=== PATIENT | male | born 1975 | race Caucasian/White ===

== ENCOUNTER 2016-05-31 19:47 | Emergency (ER) | payer OTHER ==
[~2016-05-31 19:47] MED LIST: ACETAMINOPHEN650 M3 PO; INVOKANA300 MG PO; LEVAQUIN750 M1 PO; LEVEMIR SUBQ; METFORMIN HCL1000 M1 PO
== END 2016-05-31 21:02 | disposition home or self-care (01) ==
LOC: SED 19:47
DX: L03.011 Cellulitis of right finger (principal); E11.9 Type 2 diabetes mellitus without complications; Z79.4 Long term (current) use of insulin
CPT/HCPCS: 10060; 82947; 99283

== ENCOUNTER 2016-07-08 23:55 | Inpatient (IN) | payer OTHER ==
--- NOTE | ~2016-07-08 | TH ---
Unit #: [id number] #: [id number] Patient: MYRNA MARIA [id number] [address] [address] [id number] I MR#: [id number] NAME: MYRNA MARIA : 1975 SEX: M STUDY DATE/TIME: UNIT: C5B ROOM: 557 STUDY DESCRIPTION: Nuclear Study Attending Physician: Pallavi Hendrix M.D. Primary Care Physician: No Primary Care Physician CARDIOLOGY REPORT EXAM Lexiscan Cardiolite Stress Test - Nuclear Portion PROCEDURE Using technetium 99m labeled Cardiolite, rest and stress SPECT images were obtained. Multiple SPECT images were obtained in various views including horizontal and vertical long axis and short axis views of the left ventricle. Images were obtained by gated SPECT method. The patient was administered 11.75 mCi of Cardiolite at rest. The patient was administered 34.1 mCi of Cardiolite after Lexiscan infusion was completed. On the stress images, there is normal perfusion noted. The rest images show normal perfusion. Comparing rest and stress images, there is no stress-induced ischemia noted. The left ventricular ejection fraction is calculated to be 66%. There is no focal wall motion abnormality seen. CONCLUSION 1. No stress-induced ischemia noted. 2. The left ventricular ejection fraction is calculated to be 66%. 3. There is no focal wall motion abnormality seen. 4. Normal Lexiscan Cardiolite stress test. 5. Technically limited study due to increased gut uptake. Clinical correlation is requested. Dictated by... Kim Saldana TD: 07/11/2016 06:22 JOB #: [id number] Unit #: [id number] #: [id number] Patient: MYRNA MARIA CARDIOLOGY REPORT Page 1 of 1 X Blanca Paul MD <ELECTRONICALLY SIGNED> 10/19/16 [id number] CARDIOLOGY REPORT
--- NOTE | ~2016-07-08 | CO ---
Unit #: [id number] #: [id number] Patient: MYRNA MARIA [id number] [facility] [address] [place], [place] [address] [id number] MR#: [id number] NAME: MYRNA MARIA ROOM: 557 Age: 40 Sex: M Admission Date: 07/09/2016 : 1975 Attending Physician: Pallavi Hendrix M.D. CONSULTATION REPORT REASON FOR CONSULTATION Elevated troponin. PRIMARY CARE PHYSICIAN Unknown. HISTORY OF PRESENT ILLNESS This is a 40-year-old Algerian male who has had 3 days of epigastric pain and nausea as well as malaise. Ten days ago, he was transitioned from his usual diabetes regimen to Invokana. He states that the pain has been epigastric and below, and then he has had quite a bit of nausea, but unable to vomit until yesterday. I have used a supervisor aluminum fabrication phone with the help of supervisor aluminum fabrication #[id number]. Yesterday after developing the vomiting as well as some diarrhea, he presented to the [facility] where his blood sugar was noted to be 246 and he was considered to be an early DKA. He was treated with IV fluids and currently he is feeling much better and is very thankful for his care. His troponin this morning was 0.06 and Cardiology was consulted to evaluate. This information is received from the patient's interview as well as record review. His prior cardiac testing history, none. Denies ever having an echocardiogram stress test or heart catheterization. PAST MEDICAL HISTORY Includes diabetes for the last 8 years. Recently transitioned to Invokana 10 days ago. ALLERGIES No known drug allergies, although he does state that he had an infection at one point in his past and was given a pill to take which caused hives. He has no memory of the name of that pill. HOME MEDICATIONS They include the following; Invokana 100 mg daily, previously was taken insulin. 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 FAMILY HISTORY No first-degree relatives with coronary or cardiac disease. Unit #: [id number] #: [id number] Patient: MYRNA MARIA REVIEW OF SYSTEMS GENERAL: Denies any fever, chills, flu-like symptoms, or unintentional weight loss. SKIN: Denies any rashes, ulcerations, or wounds. HEAD: Headaches, denies. EYES: Blurred vision without glasses. EARS: Denies any sudden change in hearing. BLEEDING: Denies epistaxis, hemoptysis, hematuria, or melena. THROAT: Denies any problems with swallowing. LUNGS: Denies any wheeze, cough, or shortness of breath. CHEST: Denies any pain, palpitations, tachycardia, PND, or orthopnea. GI: Positive for nausea, vomiting, and diarrhea as described in HPI. : Denies any burning or urgency. EXTREMITIES: Denies any swelling or increased pain with walking. NEUROLOGIC: Denies any numbness, tingling, seizures, stroke-like symptoms, dizziness, unsteadiness, or falls. PHYSICAL EXAMINATION VITAL SIGNS: Blood pressure 120/63, pulse of 98, respirations 22, temperature is 98.9, 98% oxygenated on room air. He is 140 pounds. GENERAL: Well-developed, well-nourished male, in no acute distress, resting in the bed. SKIN: No obvious rashes or ulcerations noted. EYES: PERRLA. No xanthelasma. Oral, good dentition. Moist mucous membranes. No pallor. NECK: No carotid bruits auscultated bilaterally. No jugular vein distention. SPINE: Not assessed. CHEST: Clear to auscultation bilaterally. No wheezes, rales, or rhonchi. CARDIAC: S1 and S2. No murmur, rub, gallop, or lift. ABDOMEN: Soft and nontender. Positive bowel sounds. EXTREMITIES: Bilateral pedal pulses +2. No edema. NEUROLOGIC: Alert and oriented x3. Speech is clear. No obvious neuro deficits. DIAGNOSTIC STUDIES LABORATORY RESULTS AND IMAGING STUDIES: Include hemoglobin A1c of 9.5. Chest x-ray, 2 views, shows no active disease. Sodium 138, potassium 4.9, chloride 105, glucose 190, BUN 27, creatinine 1.0, AST 22, ALT 20, albumin 4.0. Hemoglobin 15, hematocrit 46.8, platelets 187, white blood cell count 15.9. Troponin 0.06 and initially was less than 0.05. Urinalysis does show elevated glucose, but no culture is indicated. Lipase 15. IMPRESSION 1. Early diabetic ketoacidosis, which is resolved with IV fluids. 2. Nonspecific troponin elevation in the setting of diabetic ketoacidosis and dehydration. 3. Dehydration, which is resolved. 4. Nausea and vomiting, which is resolved. PLAN We will complete a 2D echocardiogram due to his risk factors of diabetes. Also troponin has been requested, which we will evaluate and make further recommendations. Thank you for this consultation. We will be happy to follow this patient with you. Unit #: [id number] #: [id number] Patient: MYRNA MARIA Dictated by... Marjorie Parker/susanna TD: 07/10/2016 15:41 JOB #: [id number] CONSULTATION REPORT Page 1 of 1 X X CONSULTATION REPORT
--- NOTE | ~2016-07-08 | A ---
[facility] Nutrition Therapy DATE: 07/10/16 Patient: MYRNA GUSTAFSONCHELSIBRIANNA TRACEE FERGUSON Physician: ALLI Address: [address] [place] [address] Room/Bed: [address] [place] [address], Zip: [place] [address] Admit Date: 07/09/16 Date of : [birth year] Height: 5 10 Weight: 140 63.6 NUTRITIONAL ASSESSMENT: REASON: CONSULT RE: DM EDUCATION PT IS 40 Y.O. MALE ADMITTED FOR CP, DKA HT: 5'10", WT: 140# (64 KG), BMI: 20.1 RD PROVIDED WRITTEN AND VERBAL TURKMEN CC DIET EDUCATION VIA FITNESS DIRECTOR. PT REPORTS DRINKING SUGAR-SWEETENED BEVERAGES DAILY WELL CONSUMES STARCHY FOODS, SUCH RICE AND BREAD DAILY. THIS RD ENCOURAGED PT CUT BACK ON SUGAR-SWEETENED BEVERAGES (DRINK MORE WATER) WELL ADD FRUITS/VEGETABLES IN PLACE OF STARCHY FOODS. PT VERBALIZED UNDERSTANDING OF THE TOPIC. PT REPORTED NO DIET QUESTIONS AT THIS TIME. RD TO REMAIN AVAILABLE. RECOMMENDATIONS: 1. ENCOURAGE COMPLIANCE OF CURRENT DIET ORDER-CC RD WILL F/U PER PROTOCOL Respectfully, TATIANA ROUSE MS, RD, LD Food and Nutritional Services [facility] cc: client file
--- NOTE | ~2016-07-08 | CR63 ---
[facility]. [facility] A Service of [facility] & [facility] RADIOLOGY TEXT RESULTS PATIENT: MYRNA MARIA LOCATION: [facility] : [birth year] UNIT #: [id number] AGE: [address]: WILEY ROB MD SEX: M ORDER DR: [id number] [facility] [address] [facility]. [place], [place] [address] [id number] MR#: [id number] Acc #: [id number] NAME: MYRNA MARIA : 1975 SEX: M STUDY DATE/TIME: 07/09/2016 5:40 UNIT: CEDOF ROOM: 86400 STUDY DESCRIPTION: CR Chest 2 View Attending Physician: Jennifer Sanchez M.D. Ordering Physician: Milton Nolan M.D. Primary Care Physician: Primary Care Physician No MEDICAL IMAGING REPORT This report is preliminary unless electronic signature is present EXAM PA and lateral chest HISTORY Shortness of air, weakness for one day. COMPARISON 07/21/2015 FINDINGS PA and lateral view of the chest were obtained. Heart size and vascularity are normal. Lungs area clear. Bones are unremarkable. IMPRESSION No active disease. Dictated by... Cisco Wolff M.D. THIS IS AN ELECTRONICALLY VERIFIED REPORT Csico Wolff M.D. at 07/09/2016 11:44 AM CUAUHTEMOC/kyle TD: 07/09/2016 07:43 JOB #: [id number] MEDICAL IMAGING REPORT Page 1 of 1 COPY
--- NOTE | ~2016-07-08 | DS ---
Unit #: [id number] #: [id number] Patient: MYRNA MARIA [id number] [address] [address] [id number] I MR#: [id number] NAME: MYRNA MARIA ROOM: 557 Age: 40 Sex: M Admission Date: 07/09/2016 : 1975 Discharge Date: 07/11/2016 Attending Physician: Pallavi Hendrix M.D. Primary Care Physician: No Primary Care Physician DISCHARGE SUMMARY DISCHARGE DIAGNOSES 1. Early diabetic ketoacidosis. 2. Nonspecific troponin elevation. 3. Dehydration. 4. Nausea and vomiting. HOSPITAL COURSE The patient is a 40-year-old male with history of diabetes for the past 8 years. Admitted for early diabetic ketoacidosis. The patient stated that he was taking short-acting insulin, but it was changed to Invokana recently. The patient stated he was not able to tolerate the Invokana and presented to the emergency room with nausea, vomiting and dehydration. The patient's glucose was 220 with an anion gap of 15 at the time of admission. The patient had elevated troponin during the hospitalization. The patient underwent a nuclear stress test, and the stress test is negative. The patient is discharged home on Levemir 15 units subcu twice daily and NovoLog aspart 5 units subcu t.i.d. with meals. CONSULTANTS 1. Cardiology, Dr. Nelson. 2. Endocrinology, Dr. Schultz. PHYSICAL EXAMINATION GENERAL: The patient is sitting on the bed, not in acute distress. VITALS: Temperature 98.1, pulse 68, respirations 16, blood pressure 90/52. HEENT: Head is atraumatic, normocephalic. Pupils are equal, round and reactive to light and accommodation. Extraocular movements are intact. NECK: Supple. HEART: Regular rate and rhythm. LUNGS: Clear to auscultation bilaterally. ABDOMEN: Soft. Positive bowel sounds. EXTREMITIES: No cyanosis. No clubbing. DIAGNOSTIC STUDIES LAB DATA: Glucose 86, BUN 13, creatinine 0.6, sodium 140, potassium 3.5, chloride 107, bicarb 26, calcium 8.6. The patient's troponin was 0.06, followed up with negative 0.04 and 0.03. The patient's sugar is 85. WBC 11.5, hemoglobin 13.1, hematocrit 41.2, platelets 180. IMAGING: Chest x-ray showed no acute disease. CARDIOVASCULAR: Nuclear stress test negative. Unit #: [id number] #: [id number] Patient: MYRNA MARIA DISCHARGE MEDICATIONS 1. Levemir 15 units subcu b.i.d. 2. NovoLog insulin aspart 5 units t.i.d. with meals. 3. Recommend to stop the Invokana. FOLLOWUP Follow with PCP in one week. DISCHARGE CONDITION Patient discharged home in stable condition. Dictated by... Kim Kimball TD: 07/12/2016 11:40 JOB #: [id number] DISCHARGE SUMMARY Page 1 of 1 X X DISCHARGE SUMMARY
--- NOTE | ~2016-07-08 | HP ---
Unit #: [id number] #: [id number] Patient: MYRNA MARIA [id number] [address] [address] [id number] I MR#: [id number] NAME: MYRNA MARIA ROOM: 02420 Age: 40 Sex: M Admission Date: 07/09/2016 : 1975 Attending Physician: Jennifer Sanchez M.D. Primary Care Physician: No Primary Care Physician HISTORY AND PHYSICAL CHIEF COMPLAINT Early diabetic ketoacidosis. HISTORY This 40-year-old male who has been diabetic for the past eight years is admitted for early diabetic ketoacidosis. The patient changed from insulin to Invokana about ten days ago. Over the past three days has been experiencing abdominal discomfort, malaise, and some chest tightness. Developed nausea and vomiting yesterday and collapsed at work according to family. He was brought to this emergency department late last evening with stable vital signs, but he has an anion gap of 15 with a serum glucose of 220 and is dehydrated. Currently is feeling somewhat improved after a liter of saline. Was previously taking short acting and longer acting insulin but this was changed to Invokana recently. In reviewing his record, he was admitted last year after starting Invokana and metformin and stopping his insulin as well. PAST MEDICAL HISTORY IDDM x8 years. ALLERGIES None. HOME MEDICATIONS Invokana 100 mg daily. Patient was previously taking insulin. FAMILY HISTORY Negative for diabetes. SOCIAL HISTORY The patient is originally from [place]. He lives with his family. He stopped smoking a year ago and does not drink alcohol. 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 PHYSICAL EXAMINATION GENERAL: Mildly ill-appearing, thin, 40-year-old male. VITAL SIGNS: Temperature 98.l, pulse 72, respirations 16, blood pressure 120/73, O2 saturation is 100% on room air. HEENT: Eyes - PERRLA, extraocular muscles are intact. Pharynx is benign. NECK: Supple without adenopathy or thyromegaly. Unit #: [id number] #: [id number] Patient: MYRNA MARIA CHEST: Clear. CARDIAC: Normal S1 and S2, without S3, S4, or murmur. ABDOMEN: Bowel sounds are present. No hepatosplenomegaly, tenderness or masses. EXTREMITIES: Without clubbing, cyanosis or edema. Pedal pulses are present. NEUROLOGIC: Patient is awake, alert and oriented. Cranial nerves are intact. Equal strength throughout. DIAGNOSTIC STUDIES LABORATORY STUDIES: Hematocrit is 50.9, white blood count is 15.8, normal platelet count. SMA 12 - glucose 220, BUN 24, CO2 15, anion gap is 20, bilirubin is 2.1, mostly indirect, alk phos 109, normal lipase. BHOB 6.6. Cardiac markers are negative. Urinalysis - positive glucose. CARDIOLOGY STUDIES: EKG - normal sinus rhythm, rate 80, normal appearing. ASSESSMENT 1. Early diabetic ketoacidosis in this 40-year-old male who was switched from insulin to Invokana ten days ago. Apparently also had problems last year after switching to Invokana. I told the patient and his that he should take insulin, and I would be happy to have Dr. Schultz see as well. 2. Intractable nausea and vomiting now improved. 3. Dehydration. PLANS 1. Zofran and Pepcid. 2. IV fluids. 3. Levemir and Humalog. 4. Obtain hemoglobin A1c. 5. Chest x-ray. 6. Will ask Dr. Schultz to see. I do not believe this patient should take Invokana in the future. Dictated by Kim Call/gianna TD: 07/09/2016 05:14 JOB #: [id number] CC: Erica Nowak M.D. HISTORY AND PHYSICAL Page 1 of 1 X Jennifer Sanchez MD HISTORY AND PHYSICAL
--- NOTE | ~2016-07-08 | ST ---
Unit #: [id number] #: [id number] Patient: MYRNA MARIA [id number] [address] [address] [id number] I MR#: [id number] NAME: MYRNA MARIA : 1975 SEX: M STUDY DATE/TIME: 07/10/2016 UNIT: C5B ROOM: 557 STUDY DESCRIPTION: Stress Test Attending Physician: Pallavi Hendrix M.D. Primary Care Physician: No Primary Care Physician CARDIOLOGY REPORT Note - this is an Monegasque male. All information was obtained and reviewed via court interpreter phone during the testing, court interpreter #[id number]. REASON FOR TEST Chest pain. DESCRIPTION Baseline EKG shows normal sinus rhythm, rate of 64 beats per minute. 0.4 mg of Lexiscan was injected per protocol followed by Cardiolite. The patient denied any complaints of chest pain or shortness of breath during the testing. There were no changes noted to the ST segment during the infusion suggestive of ischemia. There was no ectopy. IMPRESSION 1. Negative EKG portion of Lexiscan Cardiolite. 2. No ST segment changes suggestive of ischemia. 3. The patient denied any symptoms of chest pain or shortness of breath during the infusion. 4. There were no arrhythmias. 5. The patient's blood pressure ranged from 93/56 to 88/55 and ending blood pressure was 100/60. The patient tolerated the testing well. 6. Please correlate with nuclear images. Dictated by... Liz TatumPEmilyREmilyNEmily for Blanca Paul M.D. LMW/df TD: 07/11/2016 06:54 JOB #: [id number] Unit #: [id number] #: [id number] Patient: MYRNA MARIA CARDIOLOGY REPORT Page 1 of 1 X Enedina Leigh APRN CARDIOLOGY REPORT
--- NOTE | ~2016-07-08 | CO ---
Unit #: [id number] #: [id number] Patient: MYRNA MARIA [id number] [address] [address] [id number] I MR#: [id number] NAME: MYRNA MARIA ROOM: 557 Age: 40 Sex: M Admission Date: 07/09/2016 : 1975 Attending Physician: Pallavi Hendrix M.D. Primary Care Physician: Primary Care Physician No CONSULTATION REPORT REASON FOR CONSULTATION Diabetes ketoacidosis. HISTORY OF PRESENT ILLNESS This is a 40-year-old male from [place], who speaks Frisian, has a history of diabetes mellitus for almost 8 years whereas insulin dependent. He was switched from the insulin to the Invokana by his primary care physician. He presented to the emergency room, was not feeling well because of the nausea and vomiting, unable to keep anything p.o. and he fell at work. His blood sugars are high. On admission, his sodium was 138, potassium 4.9, CO2 was 11, BUN is 27, creatinine 0.1. He was started on IV fluids and subcu insulin. His blood sugars improved, but there was no other labs done since this morning. PAST MEDICAL HISTORY Type 1 diabetes mellitus for 8 years, he is insulin dependent. ALLERGIES None known. MEDICATIONS Insulin was discontinued and started on Invokana. FAMILY HISTORY Negative for diabetes. SOCIAL HISTORY Originally from [place], lives with family. No alcohol or illicit drugs. He stopped smoking a year ago. REVIEW OF SYSTEMS Very difficult to obtain. As per nurse's 10-point review of systems, the patient has not been throwing up since he has been admitted, he has no vomiting. PHYSICAL EXAMINATION GENERAL: He is a lean and thin male. VITAL SIGNS: Temperature 98.8, pulse 84, respirations 18, and blood pressure 108/59. HEENT: EOMI. Pupils equally reactive to light. NECK: Supple. No thyromegaly noted. CHEST: Good air entry. CVS: Regular rhythm. No murmurs. ABDOMEN: Soft and nontender. Bowel sounds positive. Unit #: [id number] #: [id number] Patient: AL JANABI,RAED MURAD KADHIM EXTREMITIES: No edema or ulcers are noted. DIAGNOSTIC STUDIES LABORATORY RESULTS: A1c is 9.5. Positive ketones. ASSESSMENT 1. Diabetes ketoacidosis. 2. History of type 1 diabetes mellitus. Blood sugars are improved. We will check stat BNP if the patient is still in diabetes ketoacidosis, may switch to the insulin drip. Continue monitoring Accu-Cheks closely. Monitor electrolytes. Continue IV hydration. We will advance the diet as tolerated. Thanks again for consultation. Dictated by... Kim Mckeon/susanna TD: 07/10/2016 14:01 JOB #: [id number] CONSULTATION REPORT Page 1 of 1 X Gerson Schultz MD X CONSULTATION REPORT
--- NOTE | ~2016-07-08 | EKG ---
PATIENT: MYRNA MARIA UNIT #: [id number] Ventricular Rate: 79 BPM Atrial Rate: 79 BPM P-R Interval: 138 ms QRS Duration: 84 ms Q-T Interval: 362 ms QTC Calculation(Bezet): 415 ms P [place]: 78 degrees Calculated R [place]: 40 degrees Calculated T [place]: 54 degrees Diagnosis Line: Normal sinus rhythm Diagnosis Line: Possible Left atrial enlargement Diagnosis Line: Borderline ECG Diagnosis Line: When compared with ECG of 08-JUL-2016 23:17, Diagnosis Line: (unconfirmed) Diagnosis Line: No significant change was found Diagnosis Line: Confirmed by FANI RODRIGUEZ MD ([id number]) on 07/09/2016 Diagnosis Line: 10:09:36 PM INTERPRETING MD: JENNIFER SAENZ
--- NOTE | ~2016-07-08 | EKG ---
PATIENT: MYRNA MARIA UNIT #: [id number] Ventricular Rate: 88 BPM Atrial Rate: 88 BPM P-R Interval: 140 ms QRS Duration: 86 ms Q-T Interval: 366 ms QTC Calculation(Bezet): 442 ms P [place]: 75 degrees Calculated R [place]: 36 degrees Calculated T [place]: 46 degrees Diagnosis Line: Normal sinus rhythm Diagnosis Line: Possible Left atrial enlargement Diagnosis Line: Borderline ECG Diagnosis Line: When compared with ECG of 09-JUL-2016 01:39, Diagnosis Line: (unconfirmed) Diagnosis Line: No significant change was found Diagnosis Line: Confirmed by FANI RODRIGUEZ MD ([id number]) on 07/09/2016 Diagnosis Line: 10:11:11 PM INTERPRETING MD: JENNIFER SAENZ
--- NOTE | ~2016-07-08 | EKG ---
PATIENT: MYRNA MARIA UNIT #: [id number] Ventricular Rate: 63 BPM Atrial Rate: 63 BPM P-R Interval: 144 ms QRS Duration: 100 ms Q-T Interval: 406 ms QTC Calculation(Bezet): 415 ms P [place]: 61 degrees Calculated R [place]: 49 degrees Calculated T [place]: 36 degrees Diagnosis Line: Normal sinus rhythm Diagnosis Line: Normal ECG Diagnosis Line: When compared with ECG of 09-JUL-2016 01:40, Diagnosis Line: No significant change was found Diagnosis Line: Confirmed by FANI RODRIGUEZ MD ([id number]) on 07/11/2016 Diagnosis Line: 7:48:14 PM INTERPRETING MD: JENNIFER SAENZ
[2016-07-09 01:44] LABS: BASOPHIL# 0.1 X10e3 (0-0.3); BASOPHIL% 0.6 % (0-2.5); DIFF IND YES; EOSINOPHIL# 0.1 X10e3 (0-0.7); EOSINOPHIL% 0.8 % (0.0-7.0); HEMATOCRIT 50.9 % (38.0-50.0); HEMOGLOBIN 16.3 gm/dL (13.0-16.0); LYMPHOCYTE% 18.8 % (17.0-45.0); MEAN CELL VOLUME 84.1 FL (83-96); MEAN PLATELET VOLUME 10.3 FL (6.5-11.5); MONOCYTE# 0.9 X10e3 (0-1.0); MONOCYTE% 5.7 % (3.0-12.0); NEUTROPHIL# 11.7 X10e3 (1.5-7.1); NEUTROPHIL% 74.1 % (40-75); PLATELET COUNT 211 X10e3 (140-420); RED BLOOD COUNT 6.06 X10e (3.90-5.60); RED CELL DISTRIBUTION WIDTH 13.5 % (11.0-15.5); WHITE BLOOD COUNT 15.8 X10e3 (4.0-10.5)
[2016-07-09 02:07] LABS: ANISOCYTOSIS SL; PLATELET ESTIMATE NORMAL (NORMAL)
[2016-07-09 02:11] LABS: ALBUMIN SERUM 4.7 g/dL (3.5-5.0); BILIRUBIN, DIRECT 0.3 mg/dL (0.0-0.2); BILIRUBIN,INDIRECT 1.8 mg/dL (0.0-0.9); BILIRUBIN,TOTAL 2.1 mg/dL (0.2-2.0); CALCIUM SERUM 9.5 mg/dL (8.4-10.2); CREATININE SERUM 0.8 mg/dL (0.6-1.4); GLOM FILT RATE Estimated 110.2 mL/min (>60); POTASSIUM 4.2 mmol/L (3.5-5.1); PROTEIN TOTAL SERUM 8.3 g/dL (6.0-8.3)
[2016-07-09 02:14] LABS: BETA HYDROXYBUTYRATE 6.61 MMOL/L (0.02-0.27)
[2016-07-09 02:17] LABS: POC - CKMB <1.0 ng/mL (0.0-7.9); POC - TROPONIN <0.05 ng/mL (<=0.05)
[2016-07-09 03:03] LABS: URINE SOURCE CLEAN CATCH
[2016-07-09 03:12] LABS: URINE APPEARANCE CLEAR; URINE BILIRUBIN NEG (NEG); URINE BLOOD NEG (NEG); URINE COLOR YELLOW; URINE GLUCOSE >1000 MG/DL (NEG); URINE KETONE 3+ (NEG); URINE LEUKOCYTE ESTERASE NEG (NEG); URINE NITRATE NEG (NEG); URINE PROTEIN NEG (NEG); URINE SPECIFIC GRAVITY 1.037 (1.003-1.035); URINE UROBILINOGEN 0.2 MG/DL (NEG)
[2016-07-09 03:18] LABS: CULTURE INDICATED? NO
[2016-07-09 06:28] LABS: %MB 1.6 % (0.0-4.0); MB 1.3 ng/ml
[2016-07-09 07:10] LABS: BASOPHIL# 0.1 X10e3 (0-0.3); BASOPHIL% 0.4 % (0-2.5); EOSINOPHIL% 0.1 % (0.0-7.0); HEMATOCRIT 46.8 % (38.0-50.0); LYMPHOCYTE# 0.8 X10e3 (1.0-3.5); LYMPHOCYTE% 5.1 % (17.0-45.0); MEAN CELL VOLUME 84.8 FL (83-96); MEAN CORPUSCULAR HEMOGLOBIN 27.1 PG (28-34); MEAN CORPUSCULAR HGB CONC 31.9 g/dL (30-36); MEAN PLATELET VOLUME 10.2 FL (6.5-11.5); MONOCYTE# 0.7 X10e3 (0-1.0); MONOCYTE% 4.4 % (3.0-12.0); NEUTROPHIL# 14.4 X10e3 (1.5-7.1); PLATELET COUNT 187 X10e3 (140-420); RED BLOOD COUNT 5.53 X10e (3.90-5.60); RED CELL DISTRIBUTION WIDTH 13.3 % (11.0-15.5); WHITE BLOOD COUNT 15.9 X10e3 (4.0-10.5)
[2016-07-09 07:11] LABS: DIFF IND NO
[2016-07-09 07:39] LABS: BILIRUBIN,TOTAL 1.8 mg/dL (0.2-2.0); CALCIUM SERUM 8.9 mg/dL (8.4-10.2); GLOM FILT RATE Estimated 92.4 mL/min (>60); POTASSIUM 4.9 mmol/L (3.5-5.1); PROTEIN TOTAL SERUM 7.1 g/dL (6.0-8.3)
[2016-07-09] MEDS ORDERED: INVOKANA100 MG PO (11:52)
[2016-07-09 19:22] LABS: GLOM FILT RATE Estimated 92.4 mL/min (>60)
[2016-07-10 07:32] LABS: HEMATOCRIT 41.2 % (38.0-50.0); HEMOGLOBIN 13.1 gm/dL (13.0-16.0); MEAN CELL VOLUME 83.7 FL (83-96); MEAN CORPUSCULAR HEMOGLOBIN 26.5 PG (28-34); MEAN CORPUSCULAR HGB CONC 31.7 g/dL (30-36); MEAN PLATELET VOLUME 9.3 FL (6.5-11.5); RED BLOOD COUNT 4.92 X10e (3.90-5.60); RED CELL DISTRIBUTION WIDTH 13.7 % (11.0-15.5); WHITE BLOOD COUNT 11.5 X10e3 (4.0-10.5)
[2016-07-10 08:12] LABS: CHOLESTEROL 115 mg/dL (0-200); HDL CHOLESTEROL 45 mg/dL (29-75); LDL CHOLESTEROL 61 mg/dL (-130); LDL/HDL RATIO 1 RATIO (0-4); TRIGLYCERIDES 43 mg/dL (10-160)
[2016-07-10 08:32] LABS: ALBUMIN SERUM 3.2 g/dL (3.5-5.0); BILIRUBIN,TOTAL 1.4 mg/dL (0.2-2.0); CREATININE SERUM 0.8 mg/dL (0.6-1.4); GLOM FILT RATE Estimated 110.2 mL/min (>60); PROTEIN TOTAL SERUM 5.7 g/dL (6.0-8.3)
[2016-07-10 08:52] LABS: %MB 3.1 % (0.0-4.0); MB 2.1 ng/ml
[2016-07-11 06:38] LABS: BUN/CREATININE RATIO 21.66; CALCIUM SERUM 8.6 mg/dL (8.4-10.2); CREATININE SERUM 0.6 mg/dL (0.6-1.4); GLOM FILT RATE Estimated 124.1 mL/min (>60); POTASSIUM 3.5 mmol/L (3.5-5.1)
[2016-07-11] MEDS ORDERED: INSULIN FAST ACTING SUBQ (10:40)
[2016-07-11] MEDS ORDERED: INSULIN LONG ACTING SUBQ (10:40)
[2016-07-11] MEDS ORDERED: LEVEMIR100 UNITS/ SUBQ (12:50)
[2016-07-11] MEDS ORDERED: NOVOLOG100 U/ML SUBQ (12:51)
== END 2016-07-11 14:30 | disposition home or self-care (01) | DRG 639 ==
LOC: CED 23:55 → CEDOF 07-09 04:00 → C5B 07-09 11:24
PROVIDERS: Emergency Medicine; Internal Medicine; Internal Medicine Cardiovascular Disease; Internal Medicine Endocrinology, Diabetes & Metabolism
PROC: B246YZZ Ultrasonography of Right and Left Heart using Other Contrast (ICD-10-PCS; principal; 2016-07-10)
DX: E10.10 Type 1 diabetes mellitus with ketoacidosis without coma (principal); E86.0 Dehydration; Z87.891 Personal history of nicotine dependence; Z79.4 Long term (current) use of insulin
CPT/HCPCS: 36415; 71020; 78452; 80048; 80053; 80061; 80076; 81003; 82010; 82550; 82553; 82947; 83036; 83690; 84484; 85025; 85027; 93005; 93017; 93306; 96361; 96374; 96375; 99285; A9500; J1815; J2270; J2405; J2785

== ENCOUNTER 2016-09-16 19:48 | Emergency (ER) | payer OTHER ==
[~2016-09-16 19:48] MED LIST changes: +INSULIN FAST ACTING SUBQ; +INSULIN LONG ACTING SUBQ; +INVOKANA100 MG PO; +LEVEMIR100 UNITS/ SUBQ; +NOVOLOG100 U/ML SUBQ
== END 2016-09-16 21:46 | disposition home or self-care (01) ==
LOC: SED 19:48
DX: L03.011 Cellulitis of right finger (principal); E10.9 Type 1 diabetes mellitus without complications; Z79.4 Long term (current) use of insulin
CPT/HCPCS: 99283

== ENCOUNTER 2016-12-05 20:41 | Emergency (ER) | payer OTHER ==
[~2016-12-05] VITALS: Ht 162.6 cm; Wt 64.9 kg
== END 2016-12-05 22:41 | disposition home or self-care (01) ==
LOC: CED 20:41 → CFTX 20:41
DX: K08.89 Other specified disorders of teeth and supporting structures (principal); E11.65 Type 2 diabetes mellitus with hyperglycemia; Z79.4 Long term (current) use of insulin
CPT/HCPCS: 82947; 99283